=== PATIENT | female | born 2005 | race Caucasian/White ===

== ENCOUNTER 2024-01-25 12:44 | Emergency (ER) | payer OTHER ==
[~2024-01-25] VITALS: Ht 167.6 cm; Wt 64.1 kg
[2024-01-25 13:43] LABS: HCG, SERUM QUALITATIVE NEGATIVE (NEGATIVE)
[2024-01-25] MEDS ORDERED: AMOX875T2 PO (14:44)
[2024-01-25 14:56] VITALS: BP 103/70; TEMP 98.4; O2SAT 99
== END 2024-01-25 14:58 | disposition home or self-care (01) ==
LOC: M ED 12:44
DX: S70.02XA Contusion of left hip, initial encounter (principal); S41.052A Open bite of left shoulder, initial encounter; Y92.019 Unspecified place in single-family (private) house as the place of occurrence of the external cause; Y93.9 Activity, unspecified; Y99.9 Unspecified external cause status; W18.2XXA Fall in (into) shower or empty bathtub, initial encounter; F17.290 Nicotine dependence, other tobacco product, uncomplicated; F10.10 Alcohol abuse, uncomplicated; Z79.2 Long term (current) use of antibiotics

== ENCOUNTER 2024-05-11 15:32 | Emergency (ER) | payer OTHER ==
[~2024-05-11] VITALS: Ht 167.6 cm; Wt 64.1 kg
[~2024-05-11 15:32] MED LIST: AMOX875T2 PO
[2024-05-11 16:09] LABS: HEMATOCRIT 40.2 % (36.0-47.0); HEMOGLOBIN 13.1 g/dl (12.0-15.5); MEAN CORPUSCULAR HEMOGLOBIN 29.5 pg (27.0-33.0); MEAN CORPUSCULAR HGB CONC 32.6 g/dl (32.0-36.5); MEAN CORPUSCULAR VOLUME 90.5 fl (80.0-96.0); PLATELET COUNT, AUTOMATED 285 10^3/uL (150-450); RED BLOOD COUNT 4.44 10^6/uL (4.00-5.40)
[2024-05-11 16:38] LABS: PHENCYCLIDINE URINE NEGATIVE (NEGATIVE)
[2024-05-11 16:39] LABS: AMPHETAMINES LEVEL URINE NEGATIVE (NEGATIVE); BARBITURATES URINE NEGATIVE (NEGATIVE); BENZODIAZEPINES URINE NEGATIVE (NEGATIVE); CANNABINOIDS URINE NEGATIVE (NEGATIVE); COCAINE METABOLITE URINE NEGATIVE (NEGATIVE); METHADONE URINE NEGATIVE (NEGATIVE); OPIATES URINE NEGATIVE (NEGATIVE)
[2024-05-11 16:41] LABS: ETHYL ALCOHOL (ETHANOL) 0.004 % (0.000-0.010); HCG, SERUM QUALITATIVE NEGATIVE (NEGATIVE)
[2024-05-11 16:43] LABS: ALKALINE PHOSPHATASE 80 U/L (35-104); ALT/SGPT 14 U/L (7.0-40); AST/SGOT 13 U/L (<34); BILIRUBIN,DIRECT 0.4 MG/DL (<0.4); BILIRUBIN,TOTAL 1.3 MG/DL (0.3-1.2); BLOOD UREA NITROGEN 12 MG/DL (9-23); CALCIUM LEVEL 9.5 MG/DL (8.5-10.1); CARBON DIOXIDE LEVEL 26 MMOL/L (20-31); CHLORIDE LEVEL 105 MMOL/L (98-107); CREATININE FOR GFR 0.58 MG/DL (0.55-1.30); GLUCOSE, FASTING 89 MG/DL (60-100); SALICYLATE LEVEL < 3.0 MG/DL (<30); SODIUM LEVEL 137 MMOL/L (136-145); TOTAL PROTEIN 7.6 G/DL (5.7-8.2)
[2024-05-11 16:46] LABS: THYROID STIMULATING HORMONE 2.833 uIU/ML (0.48-4.17)
[2024-05-11] MEDS ORDERED: HOME MED LIST COMPLETE! XX SCH (17:10)
[2024-05-11 18:10] VITALS: BP 116/68; TEMP 97.3; O2SAT 100
== END 2024-05-11 18:15 | disposition home or self-care (01) ==
LOC: M ED 15:32
DX: F32.A Depression, unspecified (principal)

== ENCOUNTER → 2024-08-29 | Outpatient (CLI) | payer OTHER | LOC: M LAB 15:39 | PROVIDERS: ATTEND Advanced Practice Midwife | DX: O36.80X0 Pregnancy with inconclusive fetal viability, not applicable or unspecified (principal) ==